=== PATIENT | male | born 1950 | race Caucasian/White ===

== ENCOUNTER 2018-12-25 08:48 | Inpatient (IN) | payer MEDICARE, OTHER ==
[2018-12-25 09:25] LABS: WHITE BLOOD COUNT 9.9 10^3/ul (4.8-10.8)
[2018-12-25 09:25] LABS: ADD MAN DIFF? NO; BASOPHILS % 0.4 % (0.0-2.0); EOSINOPHILS # 0.2 10^3/ul (0.0-0.5); EOSINOPHILS % 1.5 % (0.0-7.0); HEMATOCRIT 35.5 % (42.0-52.0); HEMOGLOBIN 11.8 g/dl (14.0-18.0); LYMPHOCYTES # 0.9 10^3/ul (0.8-2.9); LYMPHOCYTES % 8.7 % (15.0-51.0); MEAN CORPUSCULAR HEMOGLOBIN 29.6 pg (29.0-33.0); MEAN CORPUSCULAR HGB CONC 33.2 g/dl (32.0-37.0); MEAN CORPUSCULAR VOLUME 89.2 fl (82.0-101.0); MEAN PLATELET VOLUME 8.7 fl (7.4-10.4); MONOCYTE # 0.8 10^3/ul (0.3-0.9); MONOCYTES % 8.2 % (0.0-11.0); NEUTROPHILS % 80.8 % (39.0-77.0); PLATELET COUNT 356 10^3/UL (140-415); RED BLOOD COUNT 3.98 10^6/ul (4.70-6.10); RED CELL DISTRIBUTION WIDTH 13.1 % (11.5-14.5)
[2018-12-25] MEDS: ONDANSETRON 4 MG INJ IV ×2 (09:27→12:24)
[2018-12-25] MEDS: SOD CHLORIDE 0.9% 1,000 ML IV ×2 (09:27→14:50)
[2018-12-25] MEDS: morphine 4 MG/ML VIAL IV (09:27)
[2018-12-25 09:45] LABS: ADD UMIC YES; ALANINE AMINOTRANSFERASE 18 IU/L (13-69); ALBUMIN 4.1 g/dl (3.3-4.9); ALBUMIN/GLOBULIN RATIO 1.24; ALKALINE PHOSPHATASE 144 IU/L (42-121); AMYLASE 67 U/L (11-123); ANION GAP 11 (5-13); ASPARTATE AMINO TRANSFERASE 51 IU/L (15-46); BILIRUBIN,INDIRECT 0.3 mg/dl (0-1.1); BILIRUBIN,TOTAL 0.3 mg/dl (0.2-1.3); BLOOD UREA NITROGEN 9 mg/dl (7-20); CALCIUM 9.8 mg/dl (8.4-10.2); CARBON DIOXIDE 27 mmol/L (21-31); CHLORIDE 97 mmol/L (97-110); Estimated GFR > 60 mL/min (>60); GLUCOSE 125 mg/dl (70-220); INR 1.09; LIPASE 91 U/L (23-300); POTASSIUM 3.5 mmol/L (3.5-5.1); PROTIME 14.2 Sec (11.9-14.9); PT RATIO 1.1; SODIUM 135 mmol/L (135-144); TOTAL PROTEIN 7.4 g/dl (6.1-8.1); UR ASCORBIC ACID NEGATIVE (NEGATIVE); UR BILIRUBIN (Dip) NEGATIVE (NEGATIVE); UR BLOOD (Dip) 2+ mg/dL (NEGATIVE); UR CLARITY CLEAR (CLEAR); UR COLOR STRAW (YELLOW); UR GLUCOSE (Dip) NEGATIVE (NEGATIVE); UR KETONES (Dip) NEGATIVE (NEGATIVE); UR LEUKOCYTE ESTERASE (Dip) NEGATIVE Leu/ul (NEGATIVE); UR NITRITE (Dip) NEGATIVE (NEGATIVE); UR RBC 4 /HPF (0-5); UR SPECIFIC GRAVITY (Dip) 1.005 (1.003-1.030); UR TOTAL PROTEIN (Dip) NEGATIVE (NEGATIVE); UR UROBILINOGEN (Dip) NEGATIVE (NEGATIVE); UR WBC 0 /HPF (0-5)
[2018-12-25 09:46] LABS: PARTIAL THROMBOPLASTIN TIME 39.4 Sec (23.0-35.0)
[2018-12-25 09:57] LABS: TROPONIN-I < 0.012 ng/ml (0.000-0.120)
[2018-12-25] MEDS: IOHEXOL 300MG/ML 150 ML BTL (10:18)
[2018-12-25] MEDS: SOD CHLORIDE 0.9% 100 ML (10:18)
[2018-12-25] MEDS: HYDROmorphONE 1 MG/ML SYG IV (12:25)
[2018-12-25] MEDS ORDERED: NACL 0.9% 3 ML SYG IV (15:00)
[2018-12-25] MEDS ORDERED: IBUPROFEN 600 MG TAB PO (15:00)
[2018-12-25] MEDS: PANTOPRAZOLE 40 MG INJ IV (21:14)
[2018-12-25] MEDS: HYDROCODONE/APAP (5/325) TAB PO (23:02)
[2018-12-26] MEDS: SOD CHLORIDE 0.9% 1,000 ML IV ×2 (05:10→17:35)
[2018-12-26 05:37] LABS: ADD MAN DIFF? NO
[2018-12-26 05:42] LABS: BASOPHIL # 0.1 10^3/ul (0.0-0.1); BASOPHILS % 0.4 % (0.0-2.0); EOSINOPHILS % 0.1 % (0.0-7.0); HEMATOCRIT 36.6 % (42.0-52.0); HEMOGLOBIN 11.9 g/dl (14.0-18.0); LYMPHOCYTES # 1.2 10^3/ul (0.8-2.9); LYMPHOCYTES % 8.2 % (15.0-51.0); MEAN CORPUSCULAR HEMOGLOBIN 29.6 pg (29.0-33.0); MEAN CORPUSCULAR HGB CONC 32.5 g/dl (32.0-37.0); MEAN PLATELET VOLUME 9.4 fl (7.4-10.4); MONOCYTE # 1.4 10^3/ul (0.3-0.9); MONOCYTES % 10.1 % (0.0-11.0); NEUTROPHIL # 11.3 10^3/ul (1.6-7.5); NEUTROPHILS % 80.6 % (39.0-77.0); PLATELET COUNT 371 10^3/UL (140-415); RED BLOOD COUNT 4.02 10^6/ul (4.70-6.10); RED CELL DISTRIBUTION WIDTH 13.5 % (11.5-14.5)
[2018-12-26] MEDS: morphine 2 MG INJ IV (06:00)
[2018-12-26 06:44] LABS: HEMOGLOBIN A1C 5.4 % (0-5.9)
[2018-12-26 07:15] LABS: ALANINE AMINOTRANSFERASE 10 IU/L (13-69); ALBUMIN/GLOBULIN RATIO 1.29; ALKALINE PHOSPHATASE 122 IU/L (42-121); ANION GAP 15 (5-13); ASPARTATE AMINO TRANSFERASE 53 IU/L (15-46); BILIRUBIN,INDIRECT 0.6 mg/dl (0-1.1); BILIRUBIN,TOTAL 0.6 mg/dl (0.2-1.3); BLOOD UREA NITROGEN 9 mg/dl (7-20); CALCIUM 9.6 mg/dl (8.4-10.2); CARBON DIOXIDE 24 mmol/L (21-31); CHLORIDE 100 mmol/L (97-110); CHOL/HDL RATIO 4.9 RATIO; CHOLESTEROL 182 mg/dl (100-200); CREATININE 0.91 mg/dl (0.61-1.24); Estimated GFR > 60 mL/min (>60); GLUCOSE 118 mg/dl (70-220); HDL CHOLESTEROL 37 mg/dl (30-78); LDL CHOLESTEROL,CALCULATED 133 mg/dl; MAGNESIUM 1.9 mg/dl (1.7-2.5); PHOSPHORUS 3.6 mg/dl (2.5-4.9); SODIUM 139 mmol/L (135-144); TOTAL PROTEIN 7.1 g/dl (6.1-8.1); TRIGLYCERIDES 62 mg/dl (0-149)
[2018-12-26] MEDS: PANTOPRAZOLE 40 MG INJ IV ×2 (09:08→21:20)
[2018-12-26] MEDS: HYDROCODONE/APAP (5/325) TAB PO (09:09)
[2018-12-26] MEDS: ENOXAPARIN 40 MG/0.4 ML SYG SC (09:10)
[2018-12-26] MEDS: morphine (ER) 15 MG TAB PO (16:41)
[2018-12-26] MEDS: ONDANSETRON 4 MG INJ IV (17:35)
[2018-12-27] MEDS: morphine (ER) 15 MG TAB PO ×3 (01:11→15:53)
[2018-12-27] MEDS: SOD CHLORIDE 0.9% 1,000 ML IV ×2 (05:45→19:41)
[2018-12-27] MEDS: PANTOPRAZOLE 40 MG INJ IV ×2 (09:04→20:56)
[2018-12-27] MEDS: ENOXAPARIN 40 MG/0.4 ML SYG SC (09:06)
[2018-12-27] MEDS: HYDROCODONE/APAP (5/325) TAB PO (10:16)
[2018-12-27] MEDS: ONDANSETRON 4 MG INJ IV (13:24)
[2018-12-27] MEDS: BACLOFEN 10 MG TAB PO ×2 (15:53→20:57)
[2018-12-27 17:37] LABS: ADD MAN DIFF? NO
[2018-12-27 17:41] LABS: BASOPHIL # 0.1 10^3/ul (0.0-0.1); BASOPHILS % 0.4 % (0.0-2.0); EOSINOPHILS % 0.2 % (0.0-7.0); HEMATOCRIT 29.6 % (42.0-52.0); HEMOGLOBIN 9.6 g/dl (14.0-18.0); LYMPHOCYTES # 0.9 10^3/ul (0.8-2.9); LYMPHOCYTES % 6.8 % (15.0-51.0); MEAN CORPUSCULAR HEMOGLOBIN 29.3 pg (29.0-33.0); MEAN CORPUSCULAR HGB CONC 32.4 g/dl (32.0-37.0); MEAN CORPUSCULAR VOLUME 90.2 fl (82.0-101.0); MEAN PLATELET VOLUME 9.8 fl (7.4-10.4); MONOCYTE # 1.4 10^3/ul (0.3-0.9); MONOCYTES % 9.9 % (0.0-11.0); NEUTROPHIL # 11.3 10^3/ul (1.6-7.5); NEUTROPHILS % 82.2 % (39.0-77.0); PLATELET COUNT 306 10^3/UL (140-415); RED BLOOD COUNT 3.28 10^6/ul (4.70-6.10); RED CELL DISTRIBUTION WIDTH 13.7 % (11.5-14.5)
[2018-12-27 17:41] LABS: WHITE BLOOD COUNT 13.7 10^3/ul (4.8-10.8)
[2018-12-27 17:59] LABS: ANION GAP 11 (5-13); BLOOD UREA NITROGEN 8 mg/dl (7-20); CALCIUM 9.1 mg/dl (8.4-10.2); CARBON DIOXIDE 24 mmol/L (21-31); CHLORIDE 99 mmol/L (97-110); CREATININE 0.85 mg/dl (0.61-1.24); Estimated GFR > 60 mL/min (>60); GLUCOSE 114 mg/dl (70-220); POTASSIUM 3.5 mmol/L (3.5-5.1); SODIUM 134 mmol/L (135-144)
[2018-12-27] MEDS: morphine (ER) 30 MG TAB PO (20:57)
[2018-12-27 21:42] LABS: ADD UMIC YES; UR ASCORBIC ACID 20 mg/dL (NEGATIVE); UR BILIRUBIN (Dip) NEGATIVE (NEGATIVE); UR BLOOD (Dip) 2+ mg/dL (NEGATIVE); UR CLARITY CLEAR (CLEAR); UR COLOR YELLOW (YELLOW); UR GLUCOSE (Dip) NEGATIVE (NEGATIVE); UR KETONES (Dip) NEGATIVE (NEGATIVE); UR LEUKOCYTE ESTERASE (Dip) NEGATIVE Leu/ul (NEGATIVE); UR MUCUS FEW /HPF (NONE SEEN); UR NITRITE (Dip) NEGATIVE (NEGATIVE); UR RBC 9 /HPF (0-5); UR SPECIFIC GRAVITY (Dip) 1.012 (1.003-1.030); UR TOTAL PROTEIN (Dip) 1+ mg/dl (NEGATIVE); UR UROBILINOGEN (Dip) NEGATIVE (NEGATIVE); UR WBC 2 /HPF (0-5)
[2018-12-28] MEDS: PANTOPRAZOLE 40 MG INJ IV (08:25)
[2018-12-28] MEDS: BACLOFEN 10 MG TAB PO ×3 (08:25→21:04)
[2018-12-28] MEDS: morphine (ER) 30 MG TAB PO ×3 (08:25→21:04)
[2018-12-28] MEDS: ENOXAPARIN 40 MG/0.4 ML SYG SC (08:26)
[2018-12-28] MEDS: SOD CHLORIDE 0.9% 1,000 ML IV (10:04)
[2018-12-28] MEDS: HYDROmorphONE 1 MG/ML SYG IV (15:34)
[2018-12-28] MEDS: PANTOPRAZOLE (EC) 40 MG TAB PO (18:54)
[2018-12-29] MEDS: SOD CHLORIDE 0.9% 1,000 ML IV ×3 (04:03→20:58)
[2018-12-29] MEDS: PANTOPRAZOLE (EC) 40 MG TAB PO ×2 (05:59→17:01)
[2018-12-29] MEDS ORDERED: HYDROmorphONE 2 MG TAB PO (09:00)
[2018-12-29] MEDS: ENOXAPARIN 40 MG/0.4 ML SYG SC (09:01)
[2018-12-29] MEDS: BACLOFEN 10 MG TAB PO ×3 (09:20→20:57)
[2018-12-29] MEDS: METHYLPREDNISOLONE 125 MG INJ IV ×3 (11:14→17:01)
[2018-12-29] MEDS: KETOROLAC 15 MG INJ IV ×3 (11:15→20:57)
[2018-12-29] MEDS: METHADONE 5 MG TAB PO ×4 (11:17→21:45)
[2018-12-29] MEDS: METHYLNALTREXONE 12 MG/0.6 ML VIAL SC (12:19)
[2018-12-29 13:19] LABS: ADD MAN DIFF? NO
[2018-12-29 13:20] LABS: ABNORMAL IP MESSAGE 1; BASOPHILS % 0.3 % (0.0-2.0); EOSINOPHILS % 0.2 % (0.0-7.0); HEMATOCRIT 28.7 % (42.0-52.0); HEMOGLOBIN 9.3 g/dl (14.0-18.0); LYMPHOCYTES # 0.3 10^3/ul (0.8-2.9); LYMPHOCYTES % 2.5 % (15.0-51.0); MEAN CORPUSCULAR HEMOGLOBIN 29.1 pg (29.0-33.0); MEAN CORPUSCULAR HGB CONC 32.4 g/dl (32.0-37.0); MEAN CORPUSCULAR VOLUME 89.7 fl (82.0-101.0); MEAN PLATELET VOLUME 9.2 fl (7.4-10.4); MONOCYTE # 0.5 10^3/ul (0.3-0.9); MONOCYTES % 5.4 % (0.0-11.0); NEUTROPHIL # 9.1 10^3/ul (1.6-7.5); NEUTROPHILS % 91.2 % (39.0-77.0); PLATELET COUNT 340 10^3/UL (140-415); POSITIVE DIFF @See below; RED CELL DISTRIBUTION WIDTH 14.2 % (11.5-14.5)
[2018-12-29] MEDS ORDERED: ALBUTEROL/IPRATROPIUM (NEB) 3 ML AMP HHN (13:30)
[2018-12-29 13:37] LABS: ANION GAP 12 (5-13); BLOOD UREA NITROGEN 8 mg/dl (7-20); CALCIUM 9.2 mg/dl (8.4-10.2); CARBON DIOXIDE 21 mmol/L (21-31); CHLORIDE 99 mmol/L (97-110); CREATININE 0.76 mg/dl (0.61-1.24); Estimated GFR > 60 mL/min (>60); GLUCOSE 153 mg/dl (70-220); POTASSIUM 3.6 mmol/L (3.5-5.1); SODIUM 132 mmol/L (135-144)
[2018-12-29] MEDS: LOPERAMIDE 2 MG CAP PO (16:44)
[2018-12-30] MEDS: METHYLPREDNISOLONE 125 MG INJ IV ×2 (00:13→05:12)
[2018-12-30] MEDS: METHADONE 5 MG TAB PO ×5 (00:13→17:29)
[2018-12-30] MEDS: KETOROLAC 15 MG INJ IV ×2 (03:06→10:34)
[2018-12-30] MEDS: PANTOPRAZOLE (EC) 40 MG TAB PO ×2 (05:12→17:33)
[2018-12-30 05:47] LABS: ADD MAN DIFF? NO
[2018-12-30 05:55] LABS: WHITE BLOOD COUNT 6.9 10^3/ul (4.8-10.8)
[2018-12-30 05:55] LABS: ABNORMAL IP MESSAGE 1; BASOPHILS % 0.1 % (0.0-2.0); HEMATOCRIT 27.1 % (42.0-52.0); LYMPHOCYTES # 0.4 10^3/ul (0.8-2.9); LYMPHOCYTES % 5.1 % (15.0-51.0); MEAN CORPUSCULAR HEMOGLOBIN 29.5 pg (29.0-33.0); MEAN CORPUSCULAR HGB CONC 33.2 g/dl (32.0-37.0); MEAN CORPUSCULAR VOLUME 88.9 fl (82.0-101.0); MEAN PLATELET VOLUME 9.6 fl (7.4-10.4); MONOCYTE # 0.4 10^3/ul (0.3-0.9); MONOCYTES % 5.3 % (0.0-11.0); NEUTROPHIL # 6.2 10^3/ul (1.6-7.5); NEUTROPHILS % 88.9 % (39.0-77.0); PLATELET COUNT 347 10^3/UL (140-415); POSITIVE DIFF @See below; RED BLOOD COUNT 3.05 10^6/ul (4.70-6.10)
[2018-12-30 06:22] LABS: MAGNESIUM 1.9 mg/dl (1.7-2.5)
[2018-12-30 06:22] LABS: PHOSPHORUS 3.7 mg/dl (2.5-4.9)
[2018-12-30 06:33] LABS: ANION GAP 11 (5-13); BLOOD UREA NITROGEN 12 mg/dl (7-20); CALCIUM 9.1 mg/dl (8.4-10.2); CARBON DIOXIDE 21 mmol/L (21-31); CHLORIDE 97 mmol/L (97-110); CREATININE 0.71 mg/dl (0.61-1.24); Estimated GFR > 60 mL/min (>60); GLUCOSE 143 mg/dl (70-220); POTASSIUM 3.6 mmol/L (3.5-5.1); SODIUM 129 mmol/L (135-144)
[2018-12-30] MEDS: ENOXAPARIN 40 MG/0.4 ML SYG SC (10:33)
[2018-12-30] MEDS: BACLOFEN 10 MG TAB PO ×2 (10:34→15:14)
[2018-12-30] MEDS: SOD CHLORIDE 0.9% 1,000 ML IV (11:08)
[2018-12-31] MEDS ORDERED: METHYLPREDNISOLONE 125 MG INJ IV (09:00)
== END 2018-12-30 19:30 | disposition short-term general hospital (02) | DRG 948 ==
LOC: E/R 08:48 → PP2 12-27 12:10
DX: G89.3 Neoplasm related pain (acute) (chronic) (principal); R59.0 Localized enlarged lymph nodes; C61 Malignant neoplasm of prostate; R19.7 Diarrhea, unspecified
CPT/HCPCS: 36415; 71045; 72158; 74018; 74177; 80048; 80053; 80061; 81001; 82150; 83036; 83690; 83735; 84100; 84153; 84154; 84443; 84484; 85025; 85610; 85730; 87040; 87075; 87086; 96374; 96375; 96376; 97110; 97116; 97162; 97530; 99285-25

== ENCOUNTER 2019-02-18 14:00 | Emergency (ER) | payer MEDICARE, OTHER ==
[2019-02-18 15:43] LABS: ADD MAN DIFF? NO
[2019-02-18] MEDS: HYDROmorphONE 1 MG/ML SYG IV ×2 (15:43→17:47)
[2019-02-18] MEDS: SOD CHLORIDE 0.9% 1,000 ML IV (15:43)
[2019-02-18] MEDS: ONDANSETRON 4 MG INJ IV ×2 (15:43→17:47)
[2019-02-18 15:44] LABS: BASOPHILS % 0.1 % (0.0-2.0); EOSINOPHILS # 0.2 10^3/ul (0.0-0.5); EOSINOPHILS % 2.2 % (0.0-7.0); HEMOGLOBIN 10.8 g/dl (14.0-18.0); LYMPHOCYTES % 8.8 % (15.0-51.0); MEAN CORPUSCULAR HEMOGLOBIN 27.2 pg (29.0-33.0); MEAN CORPUSCULAR HGB CONC 32.7 g/dl (32.0-37.0); MEAN CORPUSCULAR VOLUME 83.1 fl (82.0-101.0); MEAN PLATELET VOLUME 8.4 fl (7.4-10.4); MONOCYTE # 0.9 10^3/ul (0.3-0.9); MONOCYTES % 8.3 % (0.0-11.0); NEUTROPHIL # 8.9 10^3/ul (1.6-7.5); NEUTROPHILS % 79.8 % (39.0-77.0); PLATELET COUNT 684 10^3/UL (140-415); RED BLOOD COUNT 3.97 10^6/ul (4.70-6.10); RED CELL DISTRIBUTION WIDTH 17.5 % (11.5-14.5)
[2019-02-18 15:44] LABS: WHITE BLOOD COUNT 11.1 10^3/ul (4.8-10.8)
[2019-02-18 15:52] LABS: ALANINE AMINOTRANSFERASE 16 IU/L (13-69); ALBUMIN 3.8 g/dl (3.3-4.9); ALBUMIN/GLOBULIN RATIO 1.35; ALKALINE PHOSPHATASE 125 IU/L (42-121); ANION GAP 14 (5-13); ASPARTATE AMINO TRANSFERASE 20 IU/L (15-46); BILIRUBIN,INDIRECT 0.2 mg/dl (0-1.1); BILIRUBIN,TOTAL 0.2 mg/dl (0.2-1.3); BLOOD UREA NITROGEN 11 mg/dl (7-20); CALCIUM 8.4 mg/dl (8.4-10.2); CARBON DIOXIDE 21 mmol/L (21-31); CHLORIDE 96 mmol/L (97-110); CREATININE 0.61 mg/dl (0.61-1.24); Estimated GFR > 60 mL/min (>60); GLUCOSE 104 mg/dl (70-220); LIPASE 370 U/L (23-300); POTASSIUM 4.1 mmol/L (3.5-5.1); SODIUM 131 mmol/L (135-144); TOTAL PROTEIN 6.6 g/dl (6.1-8.1)
[2019-02-18] MEDS: IOHEXOL 300MG/ML 150 ML BTL (16:41)
[2019-02-18] MEDS: SOD CHLORIDE 0.9% 100 ML (16:41)
[2019-02-18] MEDS: LIDOCAINE/MYLANTA 40 ML BTL PO (17:38)
== END 2019-02-18 19:15 | disposition home or self-care (01) ==
LOC: E/R 14:00
DX: R19.7 Diarrhea, unspecified (principal); F17.210 Nicotine dependence, cigarettes, uncomplicated; R10.30 Lower abdominal pain, unspecified; Z85.46 Personal history of malignant neoplasm of prostate; Z98.61 Coronary angioplasty status
CPT/HCPCS: 36415; 74177; 80053; 83690; 85025; 96361; 96374; 96375; 96376; 99285-25

== ENCOUNTER 2019-04-14 16:20 | Inpatient (IN) | payer MEDICARE, OTHER ==
[2019-04-14 18:14] LABS: ADD MAN DIFF? NO
[2019-04-14 18:26] LABS: WHITE BLOOD COUNT 6.9 10^3/ul (4.8-10.8)
[2019-04-14 18:26] LABS: BASOPHILS % 0.6 % (0.0-2.0); EOSINOPHILS # 0.1 10^3/ul (0.0-0.5); EOSINOPHILS % 1.5 % (0.0-7.0); HEMATOCRIT 25.3 % (42.0-52.0); HEMOGLOBIN 8.1 g/dl (14.0-18.0); LYMPHOCYTES # 0.9 10^3/ul (0.8-2.9); LYMPHOCYTES % 12.4 % (15.0-51.0); MEAN CORPUSCULAR HEMOGLOBIN 24.6 pg (29.0-33.0); MEAN CORPUSCULAR VOLUME 76.9 fl (82.0-101.0); MEAN PLATELET VOLUME 8.5 fl (7.4-10.4); MONOCYTE # 0.6 10^3/ul (0.3-0.9); NEUTROPHIL # 5.2 10^3/ul (1.6-7.5); NEUTROPHILS % 76.1 % (39.0-77.0); PLATELET COUNT 572 10^3/UL (140-415); RED BLOOD COUNT 3.29 10^6/ul (4.70-6.10)
[2019-04-14 18:41] LABS: ALANINE AMINOTRANSFERASE 9 IU/L (13-69); ALBUMIN/GLOBULIN RATIO 0.96; ALKALINE PHOSPHATASE 220 IU/L (42-121); ANION GAP 10 (5-13); ASPARTATE AMINO TRANSFERASE 17 IU/L (15-46); BILIRUBIN,INDIRECT 0.3 mg/dl (0-1.1); BILIRUBIN,TOTAL 0.3 mg/dl (0.2-1.3); BLOOD UREA NITROGEN 7 mg/dl (7-20); CALCIUM 8.3 mg/dl (8.4-10.2); CARBON DIOXIDE 23 mmol/L (21-31); CHLORIDE 102 mmol/L (97-110); CREATININE 0.81 mg/dl (0.61-1.24); Estimated GFR > 60 mL/min (>60); GLUCOSE 93 mg/dl (70-220); LIPASE 18 U/L (23-300); SODIUM 135 mmol/L (135-144); TOTAL PROTEIN 6.1 g/dl (6.1-8.1)
[2019-04-14 18:53] LABS: TROPONIN-I < 0.012 ng/ml (0.000-0.120)
[2019-04-14] MEDS: LACTATED RINGER'S 1,000 ML IV (19:00)
[2019-04-14] MEDS ORDERED: HYDROCODONE/APAP (5/325) TAB PO (19:30)
[2019-04-14] MEDS ORDERED: NACL 0.9% 3 ML SYG IV (19:30)
[2019-04-14] MEDS ORDERED: MAGNESIUM HYDROXIDE 30ML CUP PO (19:30)
[2019-04-14] MEDS ORDERED: ACETAMINOPHEN 325 MG TAB PO (19:30)
[2019-04-14] MEDS: ONDANSETRON 4 MG INJ IV (21:20)
[2019-04-14] MEDS: TAMSULOSIN (SR) 0.4 MG CAP PO (21:22)
[2019-04-14] MEDS: DEXTROSE 5%-0.45% NACL 1,000 ML IV (21:22)
[2019-04-14] MEDS: HYDROCODONE/APAP (5/325) TAB PO (21:25)
[2019-04-14] MEDS: HEPARIN 5,000 UNIT/1 ML VIAL SC (21:34)
[2019-04-14] MEDS: DRONABINOL 2.5 MG CAP PO (23:20)
[2019-04-15] MEDS: DOCUSATE SODIUM 100 MG CAP PO ×3 (00:55→21:00)
[2019-04-15 04:47] LABS: ADD UMIC YES; UR ASCORBIC ACID NEGATIVE (NEGATIVE); UR BILIRUBIN (Dip) NEGATIVE (NEGATIVE); UR BLOOD (Dip) 1+ mg/dL (NEGATIVE); UR CLARITY SLIGHTLY CLOUDY (CLEAR); UR COLOR YELLOW (YELLOW); UR GLUCOSE (Dip) NEGATIVE (NEGATIVE); UR KETONES (Dip) NEGATIVE (NEGATIVE); UR LEUKOCYTE ESTERASE (Dip) NEGATIVE Leu/ul (NEGATIVE); UR NITRITE (Dip) NEGATIVE (NEGATIVE); UR RBC 13 /HPF (0-5); UR SPECIFIC GRAVITY (Dip) 1.009 (1.003-1.030); UR TOTAL PROTEIN (Dip) NEGATIVE (NEGATIVE); UR UROBILINOGEN (Dip) NEGATIVE (NEGATIVE); UR WBC 5 /HPF (0-5)
[2019-04-15] MEDS: DEXTROSE 5%-0.45% NACL 1,000 ML IV ×2 (05:20→10:42)
[2019-04-15] MEDS: PANTOPRAZOLE (EC) 40 MG TAB PO (05:54)
[2019-04-15] MEDS: IOHEXOL 14.3 MG(I)/ML (ADULT) BTL PO (06:23)
[2019-04-15] MEDS: ONDANSETRON 4 MG INJ IV ×2 (06:26→20:29)
[2019-04-15] MEDS: HEPARIN 5,000 UNIT/1 ML VIAL SC ×3 (06:50→20:33)
[2019-04-15 08:24] LABS: ADD MAN DIFF? NO
[2019-04-15 08:38] LABS: BASOPHILS % 0.7 % (0.0-2.0); EOSINOPHILS # 0.2 10^3/ul (0.0-0.5); EOSINOPHILS % 2.8 % (0.0-7.0); HEMATOCRIT 21.7 % (42.0-52.0); HEMOGLOBIN 7.2 g/dl (14.0-18.0); LYMPHOCYTES # 0.9 10^3/ul (0.8-2.9); LYMPHOCYTES % 14.4 % (15.0-51.0); MEAN CORPUSCULAR HEMOGLOBIN 25.3 pg (29.0-33.0); MEAN CORPUSCULAR HGB CONC 33.2 g/dl (32.0-37.0); MEAN CORPUSCULAR VOLUME 76.1 fl (82.0-101.0); MEAN PLATELET VOLUME 9.6 fl (7.4-10.4); MONOCYTE # 0.6 10^3/ul (0.3-0.9); MONOCYTES % 10.1 % (0.0-11.0); NEUTROPHIL # 4.3 10^3/ul (1.6-7.5); NEUTROPHILS % 71.7 % (39.0-77.0); PLATELET COUNT 633 10^3/UL (140-415); RED BLOOD COUNT 2.85 10^6/ul (4.70-6.10); RED CELL DISTRIBUTION WIDTH 18.9 % (11.5-14.5)
[2019-04-15] MEDS: POLYETHYLENE GLYCOL 17 GM PACKET PO (09:00)
[2019-04-15 09:06] LABS: B-TYPE NATRIURETIC PEPTIDE 1660 PG/ML (0-125)
[2019-04-15 09:06] LABS: ALANINE AMINOTRANSFERASE 17 IU/L (13-69); ALBUMIN 2.5 g/dl (3.3-4.9); ALBUMIN/GLOBULIN RATIO 0.92; ALKALINE PHOSPHATASE 178 IU/L (42-121); ANION GAP 7 (5-13); ASPARTATE AMINO TRANSFERASE 17 IU/L (15-46); BILIRUBIN,INDIRECT 0.3 mg/dl (0-1.1); BILIRUBIN,TOTAL 0.3 mg/dl (0.2-1.3); BLOOD UREA NITROGEN 6 mg/dl (7-20); CALCIUM 7.8 mg/dl (8.4-10.2); CARBON DIOXIDE 24 mmol/L (21-31); CHLORIDE 104 mmol/L (97-110); Estimated GFR > 60 mL/min (>60); GLUCOSE 89 mg/dl (70-220); MAGNESIUM 1.9 mg/dl (1.7-2.5); POTASSIUM 3.2 mmol/L (3.5-5.1); SODIUM 135 mmol/L (135-144); TOTAL PROTEIN 5.2 g/dl (6.1-8.1)
[2019-04-15 09:57] LABS: IRON < 10 ug/dl (35-150); TOTAL IRON BINDING CAPACITY 176 ug/dl (241-421)
[2019-04-15] MEDS ORDERED: BISACODYL 10 MG SUPP PR (11:30)
[2019-04-15] MEDS: SOD CHLORIDE 0.9% 100 ML (12:15)
[2019-04-15] MEDS: IOHEXOL 300MG/ML 150 ML BTL (14:54)
[2019-04-15] MEDS: HYDROmorphONE 1 MG/ML SYG IV ×2 (14:56→20:22)
[2019-04-15] MEDS: TAMSULOSIN (SR) 0.4 MG CAP PO (21:00)
[2019-04-15] MEDS: POTASSIUM CHLORIDE 100 ML IVPB (22:01)
[2019-04-15] MEDS: FUROSEMIDE 40 MG INJ IV (22:35)
[2019-04-16] MEDS: DEXTROSE 5%-0.45% NACL 1,000 ML IV ×3 (01:20→18:21)
[2019-04-16] MEDS: HYDROmorphONE 1 MG/ML SYG IV (01:56)
[2019-04-16] MEDS: POTASSIUM CHLORIDE 100 ML IVPB (04:41)
[2019-04-16] MEDS: ONDANSETRON 4 MG INJ IV ×3 (05:30→22:41)
[2019-04-16] MEDS: PANTOPRAZOLE (EC) 40 MG TAB PO (06:24)
[2019-04-16] MEDS: HEPARIN 5,000 UNIT/1 ML VIAL SC ×3 (06:29→21:11)
[2019-04-16] MEDS: POLYETHYLENE GLYCOL 17 GM PACKET PO (13:50)
[2019-04-16] MEDS: DOCUSATE SODIUM 100 MG CAP PO ×2 (13:50→21:04)
[2019-04-16] MEDS ORDERED: ONDANSETRON 4 MG INJ IV ×2 (18:24→23:30)
[2019-04-16] MEDS: TAMSULOSIN (SR) 0.4 MG CAP PO (21:04)
[2019-04-16] MEDS ORDERED: FAMOTIDINE 20 MG INJ IV (23:00)
[2019-04-16] MEDS: AL HYDROX/MG HYDROX/SIMETH 30 ML CUP PO (23:03)
[2019-04-16] MEDS: LIDOCAINE/MYLANTA 40 ML BTL PO (23:40)
[2019-04-17] MEDS: AL HYDROX/MG HYDROX/SIMETH 30 ML CUP PO ×2 (04:06→17:55)
[2019-04-17] MEDS: PANTOPRAZOLE (EC) 40 MG TAB PO (05:18)
[2019-04-17] MEDS: HEPARIN 5,000 UNIT/1 ML VIAL SC ×3 (05:21→21:49)
[2019-04-17] MEDS: DEXTROSE 5%-0.45% NACL 1,000 ML IV ×2 (05:24→17:29)
[2019-04-17] MEDS: HYDROmorphONE 0.5 MG/0.5 ML SYG IV ×2 (08:04→13:37)
[2019-04-17] MEDS: DOCUSATE SODIUM 100 MG CAP PO ×2 (09:00→21:00)
[2019-04-17] MEDS: POLYETHYLENE GLYCOL 17 GM PACKET PO (09:00)
[2019-04-17] MEDS: SOD FERRIC GLUC COMPLX 125 MG in SOD CHLORIDE 0.9% 100 ML IVPB (15:17)
[2019-04-17] MEDS: METOCLOPRAMIDE 10 MG INJ IV (17:22)
[2019-04-17] MEDS: TAMSULOSIN (SR) 0.4 MG CAP PO (21:19)
[2019-04-17] MEDS: HYDROmorphONE 1 MG/ML SYG IV (21:19)
[2019-04-17] MEDS: HYDROCODONE/APAP (5/325) TAB PO (23:52)
[2019-04-18] MEDS: PANTOPRAZOLE (EC) 40 MG TAB PO (05:19)
[2019-04-18] MEDS: HEPARIN 5,000 UNIT/1 ML VIAL SC ×3 (05:31→21:59)
[2019-04-18] MEDS: POLYETHYLENE GLYCOL 17 GM PACKET PO (08:39)
[2019-04-18] MEDS: DOCUSATE SODIUM 100 MG CAP PO (08:39)
[2019-04-18] MEDS: HYDROmorphONE 1 MG/ML SYG IV ×3 (10:47→21:25)
[2019-04-18] MEDS: HYDROCODONE/APAP (5/325) TAB PO (14:14)
[2019-04-18] MEDS: SOD FERRIC GLUC COMPLX 125 MG in SOD CHLORIDE 0.9% 100 ML IVPB (14:14)
[2019-04-18] MEDS: TAMSULOSIN (SR) 0.4 MG CAP PO (21:24)
[2019-04-19] MEDS: HYDROmorphONE 1 MG/ML SYG IV ×4 (01:42→16:41)
[2019-04-19] MEDS: PANTOPRAZOLE (EC) 40 MG TAB PO (05:40)
[2019-04-19] MEDS: HEPARIN 5,000 UNIT/1 ML VIAL SC ×2 (05:43→13:47)
[2019-04-19] MEDS: HYDROCODONE/APAP (5/325) TAB PO (13:35)
[2019-04-19] MEDS: POLYETHYLENE GLYCOL 17 GM PACKET PO (13:39)
[2019-04-19] MEDS: AL HYDROX/MG HYDROX/SIMETH 30 ML CUP PO (13:41)
[2019-04-19] MEDS: SOD FERRIC GLUC COMPLX 125 MG in SOD CHLORIDE 0.9% 100 ML IVPB (13:43)
== END 2019-04-19 19:00 | disposition hospice, home (50) | DRG 389 ==
LOC: 2NE 04-18 22:35 → E/R 16:20 → TEL 19:43
DX: K56.7 Ileus, unspecified (principal); C79.51 Secondary malignant neoplasm of bone; C61 Malignant neoplasm of prostate; D50.9 Iron deficiency anemia, unspecified; G89.3 Neoplasm related pain (acute) (chronic); D63.0 Anemia in neoplastic disease; I95.1 Orthostatic hypotension; R63.0 Anorexia; Z68.26 Body mass index [BMI] 26.0-26.9, adult
CPT/HCPCS: 71045; 72170; 74177; 76705; 80053; 81001; 82728; 83540; 83690; 83735; 83880; 84484; 85025; 86850; 86900; 86901; 93005; 93306; 93880; 97110; 97116; 97162; 97167; 97530; 99285-25; G0378